=== PATIENT | male | born 1960 | race American Indian/Alaskan Native ===

== ENCOUNTER 2019-12-25 13:20 | Emergency (ER) | payer SELFPAY ==
[2019-12-25] MEDS ORDERED: SODIUM CHLORIDE 0.9% 1000 ML 1,000 ML IV ONE (15:25)
[2019-12-25] MEDS ORDERED: ASPIRIN 81 MG TAB CHEW PO ONE (15:25)
[2019-12-25] MEDS ORDERED: DEXTROSE 50% IN WATER (25GM) 50 ML SYRINGE IV ONE ×2 (15:30→15:32)
--- NOTE | 2019-12-25 15:35 | Emergency Department Report ---
ED Syncope HPI - General Chief Complaint: Syncope Stated Complaint: SYNCOPE Time Seen by Provider: 12/25/19 15:20 Source: patient, EMS - History of Present Illness Initial Comments: Patient is 59 years old male with no significant past medical history except for chronic alcohol abuse and cocaine abuse per patient report. Patient brought to the emergency room via EMS from home after patient was found unresponsive by his neighbor. Patient stated that he was cutting grass and then he passed out, he does not remember for how long he passed out. In the emergency room patient is alert but is slightly drowsy oriented x3. Patient found to have a blood glucose of 43. Patient immediately given dextrose 50 with improvement. Patient stated that he has been doing cocaine and alcohol last night. Patient denied any fever, chills, chest pain, shortness of breath, nausea or vomiting. Timing/Prior Episodes: no prior history, single episode today Loss of Consciousness: unsure - Related Data Allergies/Adverse Reactions: Allergies No Known Allergies Allergy (Unverified 12/25/19 15:32) ED Review of Systems ROS: Stated complaint: SYNCOPE Other details as noted in HPI Comment: All other systems reviewed and negative Constitutional: denies: chills, fever Cardiovascular: denies: chest pain, palpitations Gastrointestinal: denies: abdominal pain, nausea, vomiting ED Physical Exam - General Limitations: No Limitations General appearance: alert, in no apparent distress - Head Head exam: Present: atraumatic, normocephalic, normal inspection - Eye Eye exam: Present: normal appearance - ENT ENT exam: Present: mucous membranes dry - Neck Neck exam: Present: normal inspection, full ROM. Absent: tenderness, meningismus - Respiratory Respiratory exam: Present: normal lung sounds bilaterally. Absent: respiratory distress, wheezes, rales, rhonchi, stridor, chest wall tenderness, accessory muscle use, decreased breath sounds, prolonged expiratory - Cardiovascular Cardiovascular Exam: Present: regular rate, normal rhythm, normal heart sounds - GI/Abdominal GI/Abdominal exam: Present: soft, normal bowel sounds. Absent: distended, tenderness, guarding, rebound, rigid, organomegaly, mass, bruit, pulsatile mass, hernia - Extremities Exam Extremities exam: Present: normal inspection, full ROM, normal capillary refill. Absent: tenderness, pedal edema, joint swelling, calf tenderness - Back Exam Back exam: Present: normal inspection, full ROM. Absent: CVA tenderness (R), CVA tenderness (L) - Neurological Exam Neurological exam: Present: alert, oriented X3, CN II-XII intact - Psychiatric Psychiatric exam: Present: normal mood - Skin Skin exam: Present: warm, dry, intact, normal color ED Course Vital Signs 12/25/19 12/25/19 12/25/19 15:30 15:47 16:30 Temperature 98.1 F Pulse Rate 60 61 Respiratory 15 18 16 Rate Blood Pressure 120/61 105/63 Blood Pressure 120/61 [Right] O2 Sat by Pulse 100 99 Oximetry 12/25/19 12/25/19 12/25/19 19:00 19:20 19:30 Temperature Pulse Rate 65 Respiratory Rate Blood Pressure 115/73 115/59 Blood Pressure [Right] O2 Sat by Pulse 98 98 Oximetry 12/25/19 12/25/19 12/25/19 21:00 22:00 22:30 Temperature Pulse Rate Respiratory Rate Blood Pressure 117/64 122/65 115/64 Blood Pressure [Right] O2 Sat by Pulse 88 94 98 Oximetry 12/25/19 23:00 Temperature 98.0 F Pulse Rate 78 Respiratory 18 Rate Blood Pressure Blood Pressure 115/68 [Right] O2 Sat by Pulse 98 Oximetry - Reevaluation(s) Reevaluation #1: 12/25/19 19:47 Patient evaluated by me multiple times. Patient is alert, oriented x3. Patient denied any chest pain or shortness of breath. Patient stated that he is feeling much better. He stated that he was drinking a lot last night and using cocaine. Patient d-dimer came back more than 10,000. Chest CTA ordered. ED Medical Decision Making - Lab Data Result diagrams: 12/25/19 15:45 12/25/19 15:45 - EKG Data -: EKG Interpreted by Me EKG shows normal: sinus rhythm Rate: normal - EKG Data Interpretation: no acute changes - Radiology Data Radiology results: report reviewed - Medical Decision Making Patient is 59 years old male with no significant past medical history except for chronic alcohol abuse and cocaine abuse per patient report. Patient brought to the emergency room via EMS from home after patient was found unresponsive by his neighbor. Patient stated that he was cutting grass and then he passed out, he does not remember for how long he passed out. In the emergency room patient is alert but is slightly drowsy oriented x3. Patient found to have a blood glucose of 43. Patient immediately given dextrose 50 with improvement. Patient stated that he has been doing cocaine and alcohol last night. Patient denied any fever, chills, chest pain, shortness of breath, nausea or vomiting. Critical care attestation.: If time is entered above; I have spent that time in minutes in the direct care of this critically ill patient, excluding procedure time. ED Disposition Clinical Impression: Syncope and collapse, Hypoglycemia, Alcohol intoxication, Cocaine abuse Condition: Stable Instructions: Syncope (ED), Cocaine Abuse (ED), Alcohol Intoxication (ED) [facility] [Primary Care Provider] - 3-5 Days
[2019-12-25] MEDS ORDERED: DEXTROSE 5% IN WATER 1,000 ML IV SCH (16:00)
[2019-12-25 16:57] LABS: Basophils % (Auto) 0.5 % (0.0-1.8); Eosinophils # (Auto) 0.1 K/mm3 (0.0-0.4); Eosinophils % (Auto) 0.8 % (0.0-4.3); Hemoglobin 13.5 gm/dl (11.8-15.2); Lymphocytes # (Auto) 2.8 K/mm3 (1.2-5.4); Lymphocytes % (Auto) 41.6 % (13.4-35.0); Mean Corpuscular HGB Conc 32 % (32-34); Mean Corpuscular Volume 105 fl (84-94); Monocytes # (Auto) 0.5 K/mm3 (0.0-0.8); Monocytes % (Auto) 6.7 % (0.0-7.3); Platelet Count 213 K/mm3 (140-440); Red Blood Count 4.02 M/mm3 (3.65-5.03); Red Cell Distribution Width 15.7 % (13.2-15.2)
[2019-12-25 17:04] LABS: BUN/Creatinine Ratio 14; Blood Urea Nitrogen 14 mg/dL (9-20); Calcium 8.2 mg/dL (8.4-10.2); Hemolysis Index 69
[2019-12-25 17:06] LABS: INR 1.11 (0.87-1.13)
[2019-12-25 17:07] LABS: Partial Thromboplastin Time 25.2 Sec. (24.2-36.6)
--- NOTE | 2019-12-25 17:10 | XRay Report ---
CHEST 1 VIEW INDICATION: Chest Pain. COMPARISON: None. FINDINGS: Support devices: None. Heart: Normal. Lungs/Pleura: No acute pulmonary or pleural findings. IMPRESSION: 1. No acute findings. Signer Name: Getachew Castaneda MD Signed: 12/25/2019 5:05 PM Workstation Name: [id number]
--- NOTE | 2019-12-25 17:20 | Cat Scan Report ---
CT head/brain wo con INDICATION / CLINICAL INFORMATION: 59 years Male; syncope. TECHNIQUE: Routine CT head without contrast. All CT scans at this location are performed using CT dos e reduction for ALARA by means of automated exposure control. COMPARISON: None. FINDINGS: BRAIN / INTRACRANIAL CONTENTS: The motion degrades the image quality. There are foci of calcification within the basal ganglia bilaterally. Otherwise, the brain appears to demonstrate appropriate attenu ation for age. The ventricular system is within normal limits in size and configuration. There is no clear CT evidence of acute intracranial hemorrhage or significant mass effect. ORBITS: No significant abnormality of visualized orbits. SINUSES / MASTOIDS: No significant abnormality in the visualized paranasal sinuses or mastoid air cody ls. CRANIOCERVICAL JUNCTION: No significant abnormality. ADDITIONAL FINDINGS: None. IMPRESSION: 1. There is no CT evidence of acute intracranial process. Signer Name: Hai Roman MD Signed: 12/25/2019 5:16 PM Workstation Name: [id number]
[2019-12-25 17:47] LABS: Bilirubin,Urine NEG (Negative); Color,Urine Straw (Yellow)
[2019-12-25 17:48] LABS: Blood,Urine NEG (Negative); Mucus,Urine FEW /HPF; Protein,Urine <15 mg/dL mg/dL (Negative); Urobilinogen,Urine < 2.0 mg/dL (<2.0); WBC,Urine < 1.0 /HPF (0.0-6.0)
[2019-12-25 18:07] LABS: Amphetamine Screen,Urine PRESUMPTIVE NEGATIVE; Benzodiazepines Screen,Urine PRESUMPTIVE NEGATIVE; Cannabinoid Screen,Urine PRESUMPTIVE NEGATIVE; Cocaine Screen,Urine PRESUMPTIVE POSITIVE; Methadone Screen,Urine PRESUMPTIVE NEGATIVE; Opiate Screen,Urine PRESUMPTIVE NEGATIVE
--- NOTE | 2019-12-25 20:49 | Cat Scan Report ---
CTA CHEST WITH IV CONTRAST INDICATION: SYNCOPE,ELEVATED D-DIMER. TECHNIQUE: Axial CT images were obtained through the chest after injection of 100 cc Omnipaque 350 IV contrast. 3 plane MIP reconstructions were produced. All CT scans at this location are performed using CT dose reduction for ALARA by means of automated exposure control. COMPARISON: None available. FINDINGS: PULMONARY ARTERIES: No pulmonary emboli. THORACIC AORTA: No acute abnormality. HEART: Normal. CORONARY ARTERIES: No significant calcification. PLEURA: No pleural effusion. No pneumothorax. LYMPH NODES: No significant adenopathy. LUNGS: Mild subpleural pulmonary emphysema both upper lobes. No acute air space or interstitial disea se. ADDITIONAL FINDINGS: None. UPPER ABDOMEN: No acute findings. SKELETAL STRUCTURES: No significant osseous abnormality. IMPRESSION: 1. No CT evidence for pulmonary embolism. 2. No acute findings. Signer Name: Pradeep Avila MD Signed: 12/25/2019 8:45 PM Workstation Name: [id number]
[2019-12-25 23:13] VITALS: BP 115/68
== END 2019-12-25 23:13 ==
LOC: ED 13:20
DX: R55 Syncope and collapse (principal); F10.129 Alcohol abuse with intoxication, unspecified; F14.10 Cocaine abuse, uncomplicated; E16.2 Hypoglycemia, unspecified
CPT/HCPCS: 36415; 70450; 71045; 71275; 80048; 80307; 81001; 82550; 82962; 84484; 85025; 85379; 85610; 85730; 93005; 96361; 96374; 99285; J7030; J7070; Q9967; 80320; G0480